=== PATIENT | female | born 1995 | race Caucasian/White ===

== ENCOUNTER 2017-03-10 12:26 | Emergency (ER) | payer OTHER ==
[~2017-03-10] VITALS: Ht 157.5 cm; Wt 55.0 kg
[2017-03-10 12:40] VITALS: Ht 157.5 cm; Wt 55.0 kg
[2017-03-10] MEDS ORDERED: HYDROCODONE/APAP (5/325) TAB PO ONE (15:00)
[2017-03-10 15:11] LABS: URINE BLOOD (Dip) POC Trace-intact (NEGATIVE)
--- NOTE | 2017-03-10 15:57 | RADRPT ---
PROCEDURE: US Pelvis CLINICAL INDICATION: Left-sided pelvic pain TECHNIQUE: Multiple sonographic images of the pelvis were obtained utilizing a transabdominal and endovaginal technique. The images were reviewed on a PACS workstation. COMPARISON: Pelvic ultrasound and MRI from 05/30/2015 LMP: 03/09/2017 FINDINGS: The uterus is retroverted and measures 7.5 x 3.6 x 4.7 cm. The endometrial echo complex measures 11 mm in thickness. There are no discrete lesions. The right ovary measures 4.6 x 2.3 x 2.3 cm. The left ovary measures 1.8 x 1.5 x 1.7 cm. There is no rmal vascular flow in both ovaries. There is a 1.5 cm complex cystic lesion with low level internal echoes in the left ovary which is li nii a hemorrhagic or corpus luteal cyst. There is trace free fluid in the right adnexa. IMPRESSION: 1.5 cm complex cystic lesion in the left ovary is likely a hemorrhagic or corpus luteal cyst. The 8.5 cm partially calcified lesion seen on the prior ultrasound from 05/30/2015 in the left adnex a is not identified in the current study. RPTAT: EE Physician Duy Date Time Electronically viewed and signed by Physician Duy on 03/10/2017 15:56 /
[2017-03-10] MEDS ORDERED: TRAM50TA2 PO (16:06)
[2017-03-10] MEDS ORDERED: IBUP-1542 PO (16:06)
--- NOTE | 2017-03-10 16:09 | ERD ---
ER Documentation Chief Complaint Date/Time DATE: 03/10/17 TIME: 16:07 Chief Complaint LEFT OVARIAN PAIN SINCE YESTERDAY, LEFT OVARIAN SURGERY 2 YRS AGO HPI This 22-year-old female complains of left pelvic pain since yesterday. 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 She has similar pain with each menstrual period. She denies fevers, vomiting, urinary complaints. She has pain despite ibuprofen and Tylenol. ROS All systems reviewed and are negative except as per history of present illness. Medications Home Meds Active Scripts Tramadol HCl (Tramadol HCl) 50 Mg Tablet, 50 MG PO Q4 Y for PAIN, #18 TAB Prov:MICHELLE CROCKER MD 03/10/17 Ibuprofen* (Motrin*) 600 Mg Tab, 600 MG PO Q6, #20 TAB Prov:MICHELLE CROCKER MD 03/10/17 Allergies Allergies: Coded Allergies: No Known Allergy (Unverified , 05/29/15) PMhx/Soc History of Surgery: Yes (CYST REMOVAL, LEFT OVARY) Anesthesia Reaction: No Hx Neurological Disorder: No Hx Respiratory Disorders: No Hx Cardiac Disorders: No Hx Psychiatric Problems: No Hx Miscellaneous Medical Probl: No Hx Alcohol Use: No Hx Substance Use: No Hx Tobacco Use: No Physical Exam Vitals Vital Signs Date Time Temp Pulse Resp B/P Pulse Ox O2 Delivery O2 Flow Rate FiO2 03/10/17 12:40 97.8 69 18 128/80 100 Physical Exam Const: [] Alert, no apparent distress. Head: Atraumatic Eyes: Normal Conjunctiva ENT: Normal External Ears, Nose and Mouth. Neck: Full range of motion..~ No meningismus. Resp: Clear to auscultation bilaterally Cardio: Regular rate and rhythm, no murmurs Abd: Soft, mild left lower quadrant tenderness without peripheral masses. No tenderness at McBurney's point no Fine sign. non distended. Normal bowel sounds Skin: No petechiae or rashes Back: No midline or flank tenderness Ext: No cyanosis, or edema Neur: Awake and alert Psych: Normal Mood and Affect Results 24 hrs Laboratory Tests Test 03/10/17 15:10 Bedside Urine pH (LAB) 7.5 Bedside Urine Protein (LAB) Negative Bedside Urine Glucose (UA) Negative Bedside Urine Ketones (LAB) Negative Bedside Urine Blood Trace-intact Bedside Urine Nitrite (LAB) Negative Bedside Urine Leukocyte Esterase (L Negative Current Medications Medications (Trade) Dose Ordered Sig/Olive Route PRN Reason Start Time Stop Time Status Last Admin Dose Admin Acetaminophen/ Hydrocodone Bitart ([place] (5/325)) 1 tab ONCE ONCE PO 03/10/17 15:00 03/10/17 15:01 DC 03/10/17 14:44 Procedures/MDM Pelvic ultrasound shows a 1.5 cm complex cystic lesion in the left ovary likely hemorrhagic or corpus luteal cyst. Calcified lesion from previous visit is no longer present. Urine is negative for signs of infection, glucose and hCG is negative. Patient has left pelvic pain with menstrual period, likely dysmenorrhea. There is no evidence of recurrent tumor, signs or symptoms to suggest torsion, UTI, abscess or additional acute causes of patient's presenting complaints. She will treated with tramadol and ibuprofen and instructed to follow-up with primary doctor. Patient was advised possible utilization of control pills or hormonal therapy for recurrent dysmenorrhea. She should return for fevers, vomiting, right-sided abdominal pain, new worsening symptoms. Departure Diagnosis: Primary Impression: Dysmenorrhea Additional Impression: Acute pain in female pelvis Condition: Stable Patient Instructions: Dysmenorrhea Additional Instructions: Ultrasound shows no recurrence of previous tumor. Small cyst which does not appear concerning. Recommend follow-up with primary doctor for possible further evaluation treatment or possible control pills or hormonal treatment. Recheck for fevers, vomiting, new worsening symptoms. MICHELLE CROCKER MD Mar 10, 2017 16:09
== END 2017-03-10 16:34 | disposition home or self-care (01) ==
LOC: FTE 12:26
DX: N94.6 Dysmenorrhea, unspecified (principal)
CPT/HCPCS: 76830; 76856; 81003; Z7502; Z7610